=== PATIENT | male | born 1995 | race African-American/Black ===

== ENCOUNTER 2016-12-28 11:47 | Emergency (ER) | payer BC ==
[~2016-12-28] VITALS: Ht 180.3 cm; Wt 75.4 kg
[2016-12-28 11:50] VITALS: Ht 180.3 cm; Wt 75.4 kg
[2016-12-28] MEDS ORDERED: NO ROUTINE MEDS (11:57)
[2016-12-28] MEDS ORDERED: AMPH30TA3 PO (12:00)
--- NOTE | 2016-12-28 12:00 | NUR ---
LAB QUICK STREP OBTAINED AND SENT TO LAB
--- NOTE | 2016-12-28 12:09 | ERPDOC ---
Departure Disposition Decision Date: Dec 28, 2016 Disposition Decision Time: 12:20 Disposition: 01 DISCHARGED HOME, SELF-CARE Impression Impression Impression: Primary Impression: Viral pharyngitis Severity: Moderate Condition: Stable Seen By: Mid-level only Patient Instructions: Pharyngitis (ED) Problems/Meds/Labs Reviewed?: Yes Medications reviewed and manag: Yes Additional Instructions: I do want you to make sure you are drinking plenty of fluids. Your strep test today was negative. Take Ibuprofen and/or Tylenol as needed for body aches and pain. If you are not improving at all then follow up with your primary care provider. Follow up care ordered?: Yes Mental Status: Alert, Oriented HPI General Chief Complaint: Throat Pain/Injury Stated Complaint: SORE THROAT Time Seen by Provider: 12:00 Source: patient Exam Limitations: no limitations HPI Dental Initial Comments He has had a sore throat since yesterday. Has gotten a little worse today. Has not had a fever or chills but has felt fatigued. He has had some nasal congestion and a mild cough. He is here playing soccer for [employer] and has had some teammates who are sick. Took some Ibuprofen yesterday but nothing so far today. Occurred At: home Onset: Gradual Duration: other (for the last 2 days) Severity: moderate Location: L pharynx, R pharynx Associated Symptoms: DENIES: cheek swelling, cough, dental trauma, diarrhea, drooling, dyspnea, facial swelling, fever, fractured tooth, gum laceration, gum swelling, headache, high pitched cry/voice, hoarseness, impacted tooth, loose tooth, nausea, retained foreign body, rhinorrhea, sinus drainage, sinus pain, trouble chewing, trouble swallowing, vomiting Past History Past Medical History Pt denies signifigant [facility] Surgical History Denies Surgeries Family History Family History: Negative Social History Smoking Status: Never smoker Substance Use Type: does not use Alcohol Intake: none Review of Systems Constitutional Constitutional: fatigue, weakness, DENIES: chills, dizziness, fever Eyes Vision: DENIES: blurring, double vision ENMT Ears: DENIES: drainage, pain Sinuses: congestion, DENIES: rhinorrhea Mouth/Throat: painful swallowing, sore throat, DENIES: change in voice, drooling, hoarsness, scratchy throat Pulmonary Respiratory: cough, DENIES: dyspnea, sputum, tachypnea GI Upper Abdomen: DENIES: nausea, pain, vomiting Lower Abdomen: DENIES: constipation, diarrhea, pain Integumentary Skin: DENIES: rash Neurological General: DENIES: headache, numbness, tingling, weakness Exam General General Nourishment: well nourished, well developed, appears stated age, no acute distress, adult General Body Habitus: well groomed Vital Signs: RN Vital Signs have been reviewed: Yes, Temperature: 98.4, Source : Oral, Heart Rate: 83, Respiratory Rate: 16, BP: 140/83, Pulse Oximetry: 97 Height (Feet): 5 Height (Inches): 11.00 [place] Dental Face: NOT FOUND: asymmetry, bruising, erythema, numbness, swelling, tender Jaw: NOT FOUND: asymmetry Gums: moist, pink, NOT FOUND: exudate, lesion, swelling Pharynx: NOT FOUND: erythema, exudate, lateral pillar signs, swelling, uvular deviation Tonsils: 1+, NOT FOUND: erythema, exudate Neck: L anterior adenopathy, R anterior adenopathy, NOT FOUND: L posterior adenopathy, R posterior adenopathy Neurologic RN Documented GCS Eye Opening: Verbal: Motor: Total: Differential Diagnoses Considering: Gingival Abscess, Peritonsillar Abscess, Gingivitis, Pharyngitis Strep, Sinusitis, Other (Viral illness) Progress Results/Orders Orders Procedure Category Date Status Time Strep A Antigen Screen LAB 12/28/16 Complete 12:00 Group A Strep Culture [facility] 12/28/16 In Process 12:19 Lab Results Laboratory Tests Test 12/28/16 12:03 Group A Streptococcus Screen Negative Progress Progress Rapid strep today is negative. Will have him push fluids and take Tylenol and/ or Motrin as needed for pain or body aches. Follow up with PCP if not improving. JAMILAH DANIELS APRN Dec 28, 2016 12:09
[2016-12-28 12:27] VITALS: BP 140/83; PULSE 83; RESP 16; TEMP 98.4; O2SAT 97
--- NOTE | 2016-12-28 12:27 | NUR ---
DISMISSAL DISMISSAL INSTRUCTIONS TO PT WITHOUT FURTHER QUESTIONS. PT LEFT DEPARTMENT [facility] IN NO DISTRESS
== END 2016-12-28 12:27 | disposition home or self-care (01) ==
LOC: ED 11:47
DX: J02.9 Acute pharyngitis, unspecified (principal); B97.89 Other viral agents as the cause of diseases classified elsewhere
CPT/HCPCS: 87081; 87430